=== PATIENT | female | born 1970 | race Asian ===

== ENCOUNTER → 2016-08-28 | Outpatient (CLI) | payer OTHER ==
[~2016-08-28] MED LIST: ALKALETE PO; AMLO5TAB2 PO; CALC-118 PO; CALC0.5C PO; CALC1TAB68 PO; CYAN100063 SL; DOCU-30 PO; DOXY100T9 PO; HYDR-3240 PO; HYDR25TA6 PO; LEVO150T PO; LEVO88TA4 PO; LIOT25TA PO; MELA1TAB8 PO
[2016-08-28 16:33] LABS: BLOOD UREA NITROGEN 14 mg/dL (7-18)
[2016-08-28 16:39] LABS: ASPARTATE AMINO TRANSFERASE 9 U/L (15-37)
== END | disposition home or self-care (01) ==
LOC: STAR 15:26
PROVIDERS: ATTEND Surgery
DX: Z01.811 Encounter for preprocedural respiratory examination (principal)
CPT/HCPCS: 36415; 71020; 80053; 85025; 93005

== ENCOUNTER 2016-09-06 05:44 | Day surgery (SDC) | payer OTHER ==
[~2016-09-06] VITALS: Ht 162.6 cm; Wt 57.0 kg
[2016-09-06] MEDS ORDERED: LACTATED RINGERS 1,000 ML IV SCH (06:12)
[2016-09-06 06:26] VITALS: BP 156/91
[2016-09-06] MEDS ORDERED: BUPIVACAINE LIPOSOME/PF INFIL ONE (06:43)
[2016-09-06 06:54] LABS: HCG UR OBC PASS
[2016-09-06] MEDS ORDERED: MIDAZOLAM 1 MG/ML, 2ML ONE (07:15)
[2016-09-06] MEDS ORDERED: FENTANYL PF 100 MCG/2ML ONE ×2 (07:15→08:30)
[2016-09-06] MEDS ORDERED: ONDANSETRON 2MG/ML, 2ML ONE (07:30)
[2016-09-06] MEDS ORDERED: PROPOFOL 10 MG/ML, 20ML ONE (07:30)
[2016-09-06] MEDS ORDERED: SUCCINYLCHOLINE 20 MG/ML, 10ML ONE (07:30)
[2016-09-06] MEDS ORDERED: DEXAMETHASONE 4 MG/ML, 1ML ONE (07:30)
[2016-09-06] MEDS ORDERED: hydrALAzine 20 MG/ML, 1ML IV PRN (08:00)
[2016-09-06] MEDS ORDERED: MEPERIDINE/PF 25MG/0.5ML IVPush PRN (08:00)
[2016-09-06] MEDS ORDERED: ACETAMINOPHEN 325 MG TABLET PO PRN (08:00)
[2016-09-06] MEDS ORDERED: PROMETHAZINE 25 MG/ML, 1ML IV PRN (08:00)
[2016-09-06] MEDS ORDERED: HYDROmorphone 1 MG/ML, 1ML IV PRN (08:00)
[2016-09-06] MEDS ORDERED: OXYcodone 5 MG/5 ML ORAL.SOL UDC PO PRN (08:00)
[2016-09-06] MEDS ORDERED: ALBUTEROL SULFATE 2.5 MG/3 ML NPPB PRN (08:00)
[2016-09-06] MEDS ORDERED: OXYcodone 5 MG/5 ML ORAL.SOL UDC ONE (08:30)
[2016-09-06] MEDS: FENTANYL PF 100 MCG/2ML IV PRN ×2 (08:31→08:47)
[2016-09-06] MEDS ORDERED: METOPROLOL 1 MG/ML, 5ML ONE (08:50)
[2016-09-06] MEDS: METOPROLOL 1 MG/ML, 5ML IV PRN ×2 (08:52→09:03)
[2016-09-06] MEDS ORDERED: hydrALAzine 20 MG/ML, 1ML ONE (09:08)
== END 2016-09-06 11:15 ==
LOC: OUT 05:44
PROVIDERS: ATTEND Surgery
DX: K64.8 Other hemorrhoids (principal); I10 Essential (primary) hypertension; E03.9 Hypothyroidism, unspecified; K64.4 Residual hemorrhoidal skin tags; E89.0 Postprocedural hypothyroidism
CPT/HCPCS: 46260; 81025; 88304; C9290; J0330; J0360; J1100; J2250; J2405; J2704; J3010; J7120